=== PATIENT | female | born 1945 | race Caucasian/White ===

== ENCOUNTER 2016-11-17 15:00 | Inpatient (IN) | payer MEDICARE, OTHER ==
[~2016-11-17] VITALS: Ht 165.1 cm; Wt 81.8 kg
--- NOTE | ~2016-11-17 | DS ---
PATIENT'S NAME: DAWNA REDDY [facility] AGE: 71 Y [address] ROOM: [address] [address] LOCATION: G3 ADMIT DATE: 12/09/2016 Discharge Summary DISCHARGE DATE: 12/11/2016 FAMILY PHYSICIAN: Villa Perez MD ATTENDING PHYSICIAN: Ricky Tony FINAL DIAGNOSIS: Left knee osteoarthritis with valgus deformity, 15-5 degrees preop correction. Range of motion was 5-120. HOSPITAL COURSE: She also has medical comorbidities with history of stroke, TIA, coronary artery disease, and medically cleared by Dr. Henry, scruff worker, preop. She has a history of obstructive sleep apnea, osteoporosis, hypertension, dyslipidemia, depression, peripheral vascular disease, and hypothyroidism. She underwent medical clearance preop and was under the medical care of consultations with Dr. Louis during her hospital stay for management of her medical comorbidities. On 12/09, she underwent total knee arthroplasty by me, Dr. Tony, without complications. She met her short-term goals and was discharged on 12/11 to continue physical therapy. She will continue DVT prophylaxis. She is on is Xarelto as part of her home medications for a cardiac disease. She will follow up with me in 2 weeks. Written discharge instructions provided. She understands wound care therapy and DVT prophylaxis. She will notify us with any concerns. RICKY TONY DO PH/modl /[id number] d: 12/27/16 0014 t: 12/29/16 1409, DISCHARGE SUMMARY
--- NOTE | ~2016-11-17 | OR ---
PATIENT'S NAME: DAWNA REDDY [facility] AGE: 71 Y [address] ROOM: [place] [address] LOCATION: [facility] ADMIT DATE: 12/09/2016 OR/Procedure Report DISCHARGE DATE: FAMILY PHYSICIAN: Villa Perez MD ATTENDING PHYSICIAN: GERMAN TONY SURGEON: German Tony DO [employer]: DATE OF PROCEDURE: 12/09/2016 PREOPERATIVE DIAGNOSIS: Left knee degenerative arthritis. POSTOPERATIVE DIAGNOSIS: Left knee degenerative arthritis. OPERATION PERFORMED: Left total knee arthroplasty, cemented tibia and femur, using medial parapatellar/subvastus approach. TOURNIQUET TIME: 26 minutes. ANESTHESIA: General endotracheal. No spinal attempted duo to having Xarelto within 48 hours. Anesthesia was comfortable after 72 hours. As such, I agreed. HARDWARE: Patient specific implants, Dee Persona. Femur size 7, tibia size E, cemented. Patelloplasty was performed and not resurfaced. Polyethylene size 11 medial congruent. COMPLICATIONS: None. ANTIBIOTICS: Given. TIMEOUT: Performed. 1 gram IV tranexamic acid given on incision, second gram topically at closure. SPECIMENS: None. ESTIMATED BLOOD LOSS: Less than 50 mL. FLUID ADMINISTERED: None. HISTORY: This is a pleasant, 71-year-old, has persistent knee pain, has failed conservative therapy including physical therapy, braces, and injections. The patient continues to suffer pain and fails activities of daily living. It is limiting quality of life and ADLs. We had a discussion regarding further treatment options as the patient has failed all conservative PATIENT'S NAME: DAWNA REDDY [facility] AGE: 71 Y [address] ROOM: [place] [address] LOCATION: [facility] ADMIT DATE: 12/09/2016 OR/Procedure Report DISCHARGE DATE: FAMILY PHYSICIAN: Villa Perez MD ATTENDING PHYSICIAN: GERMAN TONY. The patient wished to proceed with total knee arthroplasty. The risks, benefits, goals and potential complications were discussed. The patient had been through the total joint course and reviewed our online resources in [facility] and then given written handout with the explanations, risks, benefits, and potential treatment complications. Consent signed on the chart. The patient understands the risk of implant recalls; potential for infection up to 2% including deep infection, this could result in multiple surgeries of explant antibiotic spacers and third surgery. The patient understands the risk of fractures; neurovascular injury; damage to arteries, nerves, muscles, tendons; loss of motion; pain; potential to develop a DVT, which could lead to pulmonary embolus and even . The patient has been well informed of the treatment options, risks, benefits, and chance of complications. The patient elects to proceed. DESCRIPTION OF PROCEDURE: The patient was brought back to the operating room theater under anesthesia. The patient was prepped and draped in the usual sterile fashion with the leg exsanguinated and tourniquet inflated. A midline incision starting from the medial aspect of the tibial tubercle approximately 3 fingerbreadths above the superior pole of the patella. Medial parapatellar arthrotomy with subvastus approach exposed the deep capsule. The deep medial capsule was elevated off the medial side of the tibia based on whether they are varus or valgus. Fat pad removed with careful attention not to injure the patellar tendon and the anterior horns of the medial and lateral meniscus were removed. ACL was sacrificed and a retractor was placed protecting the medial and lateral collateral ligaments. The distal cutting block put in position. Appropriate resection taken off the distal femur. After confirmed positioning, slope, proximal tibia resected. Careful attention protecting the collateral ligaments, patellar tendon with bicondylar smooth and dual PCL retractor placed to protect the posterior structures. We then placed a spacer block to confirm adequate bony resections with extension gap. Medial and lateral compartments were cleaned out of any meniscus and soft tissue protecting the collaterals, popliteus, and posterior structures. The anterior and posterior chamfer cuts were made confirming no notching anteriorly. Bony osteophytes removed. A trial femur was placed and using a poly, I floated the tibia confirming intact collateral ligaments and good balancing. If any further releases were needed, those were performed. I confirmed there were no posterior osteophytes of the distal femur, floating technique, I marked the position of the tibia. Final preparation of the femur with lug holes drilled. I then removed the trial femur, placed the tibia, and confirmed axial alignment with PSI and the floating technique. Once satisfied, the trial tibial plate was locked into place confirming with drop nancy appropriate alignment and slope. The final tibia was drilled and cruciate punch performed. With the trials in place, went through range of motion, confirming excellent stability with varus/valgus stress and good stability at 0, 30, and 90 degrees of motion. I confirmed the patella was well tracking after PATIENT'S NAME: DAWNA REDDY [facility] AGE: 71 Y [address] ROOM: [place] [address] LOCATION: [facility] ADMIT DATE: 12/09/2016 OR/Procedure Report DISCHARGE DATE: FAMILY PHYSICIAN: Villa Perez MD ATTENDING PHYSICIAN: GERMAN TONY osteophytes removed. A patelloplasty was performed with no resurfacing. All trials were then removed. The bone was pulsatiled to clean and dry surface. Exparel cocktail using multiple stabs with careful aspiration not to inject intravascularly, staying away from the lateral compartment as to not cause foot drop. The tibia was placed followed by femur, held in full extension with trial poly. Excess cement removed. Reconfirmed stability with trial poly. If PCL well functioning, I used a medial congruent poly; if PCL at risk for deficiency, a deep-dish polyethylene used. Once the trial poly was removed, confirmed all cement was hardened and excess cement removed. Range of motion confirmed again prior to final poly being locked into place. Aquamantys was used to establish hemostasis with tourniquet deployed. Final poly locked into place. Hemostasis achieved. Wound closure involved #2 Vicryl in a [id number] pattern along the capsulotomy followed by #2 Quill, Monocryl in a simple buried pattern followed by V-Loc Dermabond. Once the Dermabond cured, the staff placed a Mepilex dressing followed by pulling the thigh-high LAURA hose over the wound and insulating the skin to prevent soft tissue cold injury from the [employer]. Please note that SCDs and LAURA hose started preop in the recovery room, continued on the nonoperative site to prevent DVT. Sponge and needle counts were reported correct x3. The patient will be followed by hospitalist, allowed to weight bear as tolerated, with encouraged physical therapy. On the day of surgery, continue prophylactic antibiotics for the first 24 hours. Continue DVT prophylaxis with SCDs, foot pumps, and LAURA hose. Unless contraindicated, they will start full-strength aspirin within 23 hours and continue for a month. GERMAN TONY DO PH/dana /[id number] d: 12/09/16 1354 t: 12/26/16 1829, OPERATIVE SUMMARY
--- NOTE | ~2016-11-17 | CON ---
PATIENT'S NAME: DAWNA REDDY [facility] AGE: 71 Y [address] ROOM: [place] [id number] LOCATION: [facility] ADMIT DATE: 12/09/2016 Consultation DISCHARGE DATE: FAMILY PHYSICIAN: Villa Perez MD ATTENDING PHYSICIAN: GERMAN TONY DATE OF CONSULTATION: 12/09/2016 REFERRING PHYSICIAN: WILFRID SYED MD CHIEF COMPLAINT: Left knee pain. HISTORY OF PRESENT ILLNESS: The patient is a pleasant 71-year-old white female whom I am asked to see postop today. She was admitted to the hospital on an elective basis today under the care of Dr. German Tony, orthopedic surgeon, with a diagnosis of end-stage DJD, left knee. She has undergone an uncomplicated left total knee arthroplasty. When I see her, she is on [address], sitting on a bed, eating supper, not complaining of nausea, vomiting, diarrhea, chest pain, or shortness of breath and says her pain is adequately controlled. She relates that she has generalized osteoarthritis and paroxysmal atrial fibrillation, is on anticoagulation. I told her I would follow her daily. Do note that her primary commercial collections driver lives here in town, Dr. Villa Henry. PAST MEDICAL HISTORY: Previous operations: Status post brain tumor removal in 1984, status post YIMI- BSO, and status post colonoscopy in 2010. ALLERGIES: NO KNOWN DRUG ALLERGIES. CURRENT MEDICATIONS: 1. Fish oil daily. 2. Cranberry tablets daily. 3. Vitamin B12 1 tablet daily 100 mcg. 4. CPAP at night. 5. Calcium 1250 mg twice a day. 6. Remeron 30 mg a day. 7. Vitamin D 1000 units a day. 8. Xarelto 20 mg a day. 9. Multivitamin 1 daily. PATIENT'S NAME: DAWNA REDDY [facility] AGE: 71 Y [address] ROOM: [address] [address] LOCATION: [facility] ADMIT DATE: 12/09/2016 Consultation DISCHARGE DATE: FAMILY PHYSICIAN: Villa Perez MD ATTENDING PHYSICIAN: GERMAN TONY 10. Primidone 250 1-1/2 tablets in the morning and 1 in the evening. 11. Trimethoprim 100 mg a day. 12. Synthroid 0.075 mg a day. 13. MiraLAX as needed. 14. Sotalol 80 mg in the morning and 120 mg at night. 15. Pravastatin 40 mg a day. 16. Ferrous sulfate 325 a day. 17. Flonase nasal spray. 18. Ultram 50 as needed. 19. Zyloprim 100. SOCIAL HISTORY: Does not smoke. FAMILY HISTORY: Negative for problems with bleeding or general anesthesia. IMMUNIZATIONS: Up-to-date for age. REVIEW OF SYSTEMS: Positive for allergic rhinitis; generalized osteoarthritis; prior Conn's palsy; hypertension, essential; chronic constipation; history of diverticulitis in the past; dyslipidemia; facial neuralgia; chronic GERD; hypothyroid replacement; chronic iron-deficiency anemia; history of meningioma in the past; mitral valve regurgitation; nocturnal myoclonus; obstructive sleep apnea; osteoarthritis of the hands; paroxysmal atrial fibrillation; pulmonary hypertension; history of seizure disorder; history of benign tremor; and history of venous insufficiency. PHYSICAL EXAM: VITAL SIGNS: Per nurse's notes. Blood pressure 130/70, pulse 80, respirations 12, and O2 saturation normal on room air. HEENT: Shows what appears to be a mild right facial droop. She is wearing glasses. Pupils react to light. TMs not visualized. Posterior pharynx is clear. NECK: Unremarkable. I did not listen for a bruit. Thyroid not enlarged. LUNGS: Clear anteriorly. HEART: Regular rhythm tonight. No murmur. BREASTS: Not done. ABDOMEN: Soft without point tenderness. PELVIC: Not done. RECTAL: Not done. EXTREMITIES: Dressing on the left knee. NEUROLOGIC: Grossly intact without lateralizing signs, old changes of PATIENT'S NAME: DAWNA REDDY [facility] AGE: 71 Y [address] ROOM: [address] [address] LOCATION: [facility] ADMIT DATE: 12/09/2016 Consultation DISCHARGE DATE: FAMILY PHYSICIAN: Villa Perez MD ATTENDING PHYSICIAN: GERMAN TONY previous CVA/brain cancer noted. MENTAL STATUS: Normal. No obvious acute depression or anxiety. ASSESSMENT: 1. End-stage degenerative joint disease, left knee. 2. Status post left total knee arthroplasty today. PLAN: Problem list otherwise listed above under review of systems, would follow daily. MD EUGENIA [place]/dana /[id number] d: 12/09/16 2347 t: 12/14/16 1441, CONSULTATION REPORT
[2016-11-17] MEDS ORDERED: MYSOLINE250 MG PO ×2 (15:38→15:39)
[2016-11-17] MEDS ORDERED: XARELTO20 MG PO (15:38)
[2016-11-17] MEDS ORDERED: ZOCOR40 MG PO (15:39)
[2016-11-17] MEDS ORDERED: REMERON 30 MG30 MG PO ×2 (15:40)
[2016-11-17] MEDS ORDERED: SOTALOL80 MG PO ×2 (15:41→15:42)
[2016-11-17] MEDS ORDERED: LEVOTHROID(SYN75 MCG PO (15:43)
[2016-11-17] MEDS ORDERED: LAMICTAL25 MG PO (15:44)
[2016-11-17] MEDS ORDERED: FERGON325 M1 PO (15:45)
[2016-11-17] MEDS ORDERED: TRIMETHOPRIM100 MG PO (15:45)
[2016-11-17] MEDS ORDERED: CENTURY ULTIMA1 EAC2 PO (15:46)
[2016-11-17] MEDS ORDERED: FISH OIL 1,0001 EAC5 PO (15:46)
[2016-11-17] MEDS ORDERED: MIRALAX PO527 GM/BOT PO (15:46)
[2016-11-17] MEDS ORDERED: ULTRAM50 MG PO (15:47)
[2016-11-17] MEDS ORDERED: CPAP INH (16:38)
[2016-12-09 07:25] LABS: ALBUMIN 3.5 gm/dL (3.5-5.0); ALK PHOS 95 IU/L (33-138); ALT 23 IU/L (12-78); BLOOD UREA NITROGEN 21 mg/dL (6-24); CALCIUM 8.3 mg/dL (8.5-10.5); CHLORIDE 111 mMol/L (96-110); CO2 27 mMol/L (22-32); CREATININE 0.8 mg/dL (0.5-1.1); SODIUM 145 mMol/L (135-145); TOTAL BILIRUBIN 0.2 mg/dL (0.0-1.5); TOTAL PROTEIN 6.7 g/dL (6.0-8.4)
[2016-12-09 07:28] LABS: ANION GAP 11.8 (10.0-19.0); AST 21 IU/L (10-40)
[2016-12-09 07:29] LABS: ESTIMATED GFR (MDRD EQUATION) > 60; POTASSIUM 4.8 mMol/L (3.7-5.1)
[2016-12-10 06:05] LABS: BASOPHIL % 0.2 %; EOSINOPHIL # 0.1 K/uL (0.0-0.5); EOSINOPHIL % 1.2 %; HEMATOCRIT 33.3 % (33.0-46.0); HEMOGLOBIN 10.8 g/dL (10.0-15.0); IMMATURE GRANULOCYTE % 0.5 %; LYMPHOCYTE # 1.6 K/uL (0.8-4.0); LYMPHOCYTE % 26.7 %; MCH 31.6 pg (27.0-34.0); MCHC 32.4 gm/dL (32.0-36.5); MCV 97.4 fl (83.0-98.0); MONOCYTE # 0.6 K/uL (0.0-1.0); MONOCYTE % 10.4 %; MPV 10.5 fl (9.4-12.4); NEUTROPHIL # (ANC) 3.7 K/uL (1.8-7.8); NRBC % 0 /100WBC (0-0.00); PLATELET COUNT 202 K/uL (150-450); RBC 3.42 M/uL (3.50-5.50); RDW-CV 13.3 % (11.9-14.6)
[2016-12-11] MEDS ORDERED: CELEBREX200 MG PO (07:38)
[2016-12-11] MEDS ORDERED: COLACE100 MG PO (07:48)
[2016-12-11] MEDS ORDERED: LYRICA 75MG CAP75 MG PO (07:50)
[2016-12-11] MEDS ORDERED: NORCO 5-325 TA1 EACH PO (07:50)
== END 2016-12-11 14:15 | disposition disaster alternative care site (69) | DRG 470 ==
LOC: G3N 12-09 05:59
PROVIDERS: ADMIT Orthopaedic Surgery
PROC: 0SRD0J9 Replacement of Left Knee Joint with Synthetic Substitute, Cemented, Open Approach (ICD-10-PCS; principal; 2016-12-09)
DX: M17.0 Bilateral primary osteoarthritis of knee (principal); I48.0 Paroxysmal atrial fibrillation; I10 Essential (primary) hypertension; K59.09 Other constipation; R25.1 Tremor, unspecified; E78.5 Hyperlipidemia, unspecified; K21.9 Gastro-esophageal reflux disease without esophagitis; E03.9 Hypothyroidism, unspecified; F32.9 Major depressive disorder, single episode, unspecified; D50.9 Iron deficiency anemia, unspecified; Z79.01 Long term (current) use of anticoagulants; Z79.899 Other long term (current) drug therapy
CPT/HCPCS: C1713; C1776; J0690; J2795; J3010; J7120

== ENCOUNTER → 2016-11-20 | Outpatient (CLI) | payer MEDICARE, OTHER ==
[~2016-11-20] MED LIST: CELEBREX200 MG PO; CENTURY ULTIMA1 EAC2 PO; COLACE100 MG PO; CPAP INH; FERGON325 M1 PO; FISH OIL 1,0001 EAC5 PO; LAMICTAL25 MG PO; LEVOTHROID(SYN75 MCG PO; LYRICA 75MG CAP75 MG PO; MIRALAX PO527 GM/BOT PO; MYSOLINE250 MG PO; NORCO 5-325 TA1 EACH PO; REMERON 30 MG30 MG PO; SOTALOL80 MG PO; TRIMETHOPRIM100 MG PO; ULTRAM50 MG PO; XARELTO20 MG PO; ZOCOR40 MG PO
== END | disposition disaster alternative care site (69) ==
LOC: GNJRC 10:01
DX: Z01.812 Encounter for preprocedural laboratory examination (principal); M17.9 Osteoarthritis of knee, unspecified